=== PATIENT | male | born 1960 | race Caucasian/White ===

== ENCOUNTER 2017-10-07 13:20 | Day surgery (SDC) | payer OTHER ==
[2017-10-06 11:38] VITALS: BMI 28.9
[2017-10-07] MEDS ORDERED: LIDOCAINE HCL/PF 2% SDV 5ML VIAL ONE (14:50)
[2017-10-07] MEDS ORDERED: PROPOFOL 20 ML ONE ×2 (14:51)
[2017-10-07 15:32] VITALS: TEMP 98
[2017-10-07 16:05] VITALS: BP 112/55; PULSE 86
== END 2017-10-07 16:50 | disposition home or self-care (01) ==
LOC: JASU-ENDO 13:20
PROVIDERS: ATTEND Internal Medicine Gastroenterology
PROC: 0DJD8ZZ Inspection of Lower Intestinal Tract, Via Natural or Artificial Opening Endoscopic (ICD-10-PCS; principal; 2017-10-07 14:30)
DX: Z12.11 Encounter for screening for malignant neoplasm of colon (principal); K57.30 Diverticulosis of large intestine without perforation or abscess without bleeding; R10.32 Left lower quadrant pain